=== PATIENT | male | born 2000 | race Caucasian/White ===

== ENCOUNTER 2023-08-01 18:55 | Emergency (ER) | payer SELFPAY ==
[~2023-08-01] VITALS: Ht 182.8 cm; Wt 106.6 kg
== END 2023-08-01 22:22 | disposition home or self-care (01) ==
LOC: ED 18:55
DX: M54.2 Cervicalgia (principal); M79.672 Pain in left foot; M54.9 Dorsalgia, unspecified; F17.210 Nicotine dependence, cigarettes, uncomplicated

== ENCOUNTER 2023-09-13 14:40 | Emergency (ER) | payer SELFPAY ==
[~2023-09-13] VITALS: Ht 180.3 cm; Wt 108.9 kg
[2023-09-13 15:46] LABS: BASO % 0.5 % (0.0-1.0); EOS # 0.1 10*3/uL (0.0-0.4); EOS % 1.8 % (1.0-4.0); HEMATOCRIT 45.4 % (42.0-52.0); LYMPH # 1.7 10*3/uL (1.3-4.4); LYMPH % 23.1 % (27.0-41.0); MEAN CELL VOLUME 87.3 fl (80.0-94.0); MEAN CORPUSCULAR HGB 29.4 pg (27.0-31.0); MEAN CORPUSCULAR HGB CONC 33.7 g/dl (33.0-37.0); MEAN PLATELET VOLUME 10.1 fl (9.6-12.3); MONO # 0.6 10*3/uL (0.1-1.0); MONO % 7.6 % (3.0-9.0); NEUT % 66.9 % (47.0-73.0); PLATELET COUNT AUTOMATED 244 10*3/uL (130-400); RED CELL DISTRI WIDTH 12.1 % (0-14.5); WHITE BLOOD COUNT 7.4 10*3/uL (4.8-10.8)
[2023-09-13 16:06] LABS: ALKALINE PHOSPHATASE 74 U/L (46-116); BUN 12 mg/dl (9-23); CHLORIDE 106 mmol/L (98-107); POTASSIUM 3.4 mmol/L (3.4-5.1); SGPT/ALT 13 U/L (5-49); TOTAL PROTEIN 8.1 gm/dL (6.0-8.0)
[2023-09-13] MEDS ORDERED: ONDANSETRON4 MG SL (17:30)
== END 2023-09-13 17:40 | disposition home or self-care (01) ==
LOC: ED 14:40
PROVIDERS: Internal Medicine
DX: B34.9 Viral infection, unspecified (principal); R11.2 Nausea with vomiting, unspecified; Z87.891 Personal history of nicotine dependence

== ENCOUNTER 2024-05-11 11:57 | Emergency (ER) | payer OTHER ==
[~2024-05-11] VITALS: Ht 177.8 cm; Wt 97.5 kg
[~2024-05-11 11:57] MED LIST: ONDANSETRON4 MG SL
[2024-05-11] MEDS ORDERED: ACETAMINOPHEN 325 MG TAB PO ONE (12:40)
[2024-05-11] MEDS ORDERED: CEPHALEXIN500 M1 PO (12:41)
== END 2024-05-11 13:09 | disposition home or self-care (01) ==
LOC: ED 11:57
DX: S81.812A Laceration without foreign body, left lower leg, initial encounter (principal); W26.8XXA Contact with other sharp object(s), not elsewhere classified, initial encounter; Y93.89 Activity, other specified; Y92.89 Other specified places as the place of occurrence of the external cause; Y99.0 Civilian activity done for income or pay

== ENCOUNTER 2024-05-17 00:41 | Emergency (ER) | payer SELFPAY ==
[~2024-05-17] VITALS: Ht 180.3 cm; Wt 72.6 kg
[~2024-05-17 00:41] MED LIST changes: +CEPHALEXIN500 M1 PO
== END 2024-05-17 02:39 | disposition home or self-care (01) ==
LOC: ED 00:41
DX: S60.051A Contusion of right little finger without damage to nail, initial encounter (principal); W23.0XXA Caught, crushed, jammed, or pinched between moving objects, initial encounter; Y93.89 Activity, other specified; Y92.89 Other specified places as the place of occurrence of the external cause; Y99.0 Civilian activity done for income or pay

== ENCOUNTER 2025-03-23 09:36 | Emergency (ER) | payer SELFPAY ==
[~2025-03-23] VITALS: Ht 182.8 cm; Wt 102.1 kg
[2025-03-23 10:15] LABS: BASO # 0.1 10*3/uL (0.0-0.1); BASO % 0.9 % (0.0-1.0); EOS # 0.4 10*3/uL (0.0-0.4); EOS % 5.6 % (1.0-4.0); MEAN CELL VOLUME 86.6 fl (80.0-94.0); MEAN CORPUSCULAR HGB 30.3 pg (27.0-31.0); MEAN PLATELET VOLUME 10.0 fl (9.6-12.3); MONO # 0.4 10*3/uL (0.1-1.0); MONO % 6.4 % (3.0-9.0); NEUT # 3.8 10*3/uL (2.3-7.9); NEUT % 59.8 % (47.0-73.0); NUCLEATED RED BLOOD CELL 0.0 % (0.0-0.0); NUCLEATED RED BLOOD CELL 0.0 10*3/uL (0.0-0.0); PLATELET COUNT AUTOMATED 264 10*3/uL (130-400); RED CELL DISTRI WIDTH 12.2 % (0-14.5)
[2025-03-23 10:29] LABS: ACT PARTIAL THROMBO TIME 27.3 SECONDS (20.0-32.1)
[2025-03-23 10:40] LABS: BUN 11 mg/dl (9-23)
[2025-03-23 10:43] LABS: ETHYL ALCOHOL < 3.0 mg/dl (<3)
[2025-03-23 12:57] LABS: URINE AMPHETAMINES Negative (1000ng/ml); URINE BARBITURATES Negative (200ng/ml); URINE BENZODIAZEPINES Negative (200ng/ml); URINE CANNABINOIDS (THC) Positive (50ng/ml); URINE COCAINE Negative (300ng/ml); URINE METHADONE Negative (300ng/ml); URINE OPIATES Negative (300ng/ml); URINE PHENCYCLIDINE Negative (25ng/ml)
== END 2025-03-23 13:45 | disposition home or self-care (01) ==
LOC: ED 09:36
PROVIDERS: Internal Medicine
DX: F41.9 Anxiety disorder, unspecified (principal); R07.89 Other chest pain; R06.02 Shortness of breath